=== PATIENT | female | born 1970 | race Caucasian/White ===

== ENCOUNTER 2017-08-07 17:26 | Inpatient (IN) | payer MEDICAID ==
[~2017-08-07] VITALS: Ht 154.9 cm; Wt 90.0 kg
[~2017-08-07 17:26] MED LIST: ASPI-664 PO; FERR-31 PO; LABE200T25 PO; PREN1TAB17 PO
[2017-08-07] MEDS ORDERED: HYDROCODONE/APAP (5/325) TAB PO ONE (18:30)
[2017-08-07 19:02] LABS: ADD UMIC YES; UR ASCORBIC ACID 40 mg/dL (NEGATIVE); UR BACTERIA FEW /HPF (NONE SEEN); UR BILIRUBIN (Dip) NEGATIVE (NEGATIVE); UR BLOOD (Dip) 3+ mg/dL (NEGATIVE); UR CLARITY CLOUDY (CLEAR); UR COLOR RED (YELLOW); UR GLUCOSE (Dip) NEGATIVE (NEGATIVE); UR KETONES (Dip) NEGATIVE (NEGATIVE); UR LEUKOCYTE ESTERASE (Dip) 1+ Leu/ul (NEGATIVE); UR NITRITE (Dip) NEGATIVE (NEGATIVE); UR RBC > 182 /HPF (0-5); UR SPECIFIC GRAVITY (Dip) 1.028 (1.003-1.030); UR TOTAL PROTEIN (Dip) 2+ mg/dl (NEGATIVE); UR UROBILINOGEN (Dip) NEGATIVE (NEGATIVE)
--- NOTE | 2017-08-07 19:18 | RADRPT ---
PROCEDURE: Ultrasound pelvis. CLINICAL INDICATION: Menorrhagia. TECHNIQUE: Multiple sonographic images of the pelvis were obtained utilizing a transabdominal and transvaginal technique. COMPARISON: Pelvic ultrasound dated 10/08/2015. FINDINGS: Uterus: 10.87 cm x 6.89 cm x 7.37 cm. Diffusely heterogeneous with no focal mass lesion identified. Endometrium: 1.11 cm in thickness. Mildly heterogeneous, but otherwise unremarkable. Right ovary: Not identified. Left ovary: 3.57 cm x 2.85 cm x 2.98 cm. Simple 2 cm cyst. Otherwise, normal in echogenicity. Fabienne l blood flow. Adnexa: No masses. Free fluid: Trace fluid within the cul-de-sac. IMPRESSION: 1. Diffusely heterogeneous echogenicity of the uterus with no focal mass lesion identified. 2. Mildly heterogeneous endometrium, which is within normal limits of thickness. 3. Simple 2 cm left ovarian cyst. 4. Trace free fluid within the cul-de-sac, which may be physiologic. RPTAT: HLBP .Sonny Poon MD, Date Time Electronically viewed and signed by .Sonny Poon MD, on 08/07/2017 19:17 .P/
[2017-08-07 20:06] LABS: HEMATOCRIT 27.8 % (37.0-47.0); HEMOGLOBIN 9.2 g/dl (12.0-16.0); MEAN CORPUSCULAR HEMOGLOBIN 25.5 pg (29.0-33.0); MEAN CORPUSCULAR HGB CONC 33.1 g/dl (32.0-37.0); MEAN PLATELET VOLUME 9.5 fl (7.4-10.4); PLATELET COUNT 365 10^3/UL (140-415); RED BLOOD COUNT 3.61 10^6/ul (4.20-5.40); RED CELL DISTRIBUTION WIDTH 14.6 % (11.5-14.5)
[2017-08-07 20:09] LABS: POSITIVE DIFF @See below
[2017-08-07 20:26] LABS: ALBUMIN 3.8 g/dl (3.3-4.9); ALBUMIN/GLOBULIN RATIO 1.46; CALCIUM 8.6 mg/dl (8.4-10.2); CREATININE 0.67 mg/dl (0.44-1.00); POTASSIUM 3.3 mmol/L (3.5-5.1); TOTAL PROTEIN 6.4 g/dl (6.1-8.1)
[2017-08-07 21:00] LABS: ANISOCYTOSIS 3+ (0-0); EOSINOPHILS % (M) 5 % (0-7); GIANT THROMBO% (M) 1 % (0-0); MICROCYTOSIS 3+ (0-0); MONOCYTES % (M) 6 % (0-11); PLATELET ESTIMATE NORMAL; POLYCHROMASIA 1+ (0-0)
--- NOTE | 2017-08-07 21:10 | ERD ---
ER Documentation Chief Complaint Chief Complaint heavy vag bleed x3 days. C/O dizziness and headache (TUCKER ROLON PA-C) HPI This is a 47-year-old female who presents emergency department today complaining of heavy vaginal bleeding for the past 3 days. States that she is currently on her menstrual cycle. She is concerned because she has large clots. States that last month she had her menstrual cycle for 2 weeks. States that she had a Pap smear a couple of years ago that was normal but has not had any evaluation since that time. States that she feels some weakness. Denies any fevers or chills, dysuria. States she has not taken any medication for the pain. States she has a slight headache. (TUCKER ROLON PA-C) ROS All systems reviewed and are negative except as per history of present illness. (TUCKER ROLON PA-C) Medications Home Meds Reported Medications Sulfamethoxazole/Trimethoprim* (Bactrim Ds* Tablet) 1 Each Tablet, 1 TAB PO BID , TAB 08/09/17 Ferrous Sulfate* (Ferrous Sulfate*) 325 Mg Tabec, 325 MG PO BID, TAB 08/09/17 Discontinued Reported Medications Aspirin* (Aspirin* EC) 81 Mg Tablet.dr, 81 MG PO DAILY, TAB 09/11/15 Ferrous Sulfate (Iron Supplement) 1 Tab Tablet, 1 TAB PO DAILY, TAB 09/11/15 Labetalol Hcl* (Labetalol Hcl*) 200 Mg Tablet, 200 MG PO BID, TAB 09/09/15 Vit-Iron Fumarate-FA ( Tablet) 1 Each Tablet, 1 TAB PO DAILY, TAB 09/01/15 Discontinued Scripts Acetaminophen* (Tylophen*) 500 Mg Capsule, 1 CAP PO Q6H Y for PAIN AND OR ELEVATED TEMP, #30 CAP Prov:TUCKER ROLON PA-C 08/07/17 Cephalexin* (Keflex*) 500 Mg Capsule, 500 MG PO QID for 7 Days, CAP Prov:TUCKER ROLON PA-C 08/07/17 Polyethylene Glycol* (Miralax*) 17 Gm Powd.pack, 17 GM PO DAILY, #30 PACKET Prov:TUCKER ROLON PA-C 08/07/17 Ferrous Sulfate* (Ferrous Sulfate*) 325 Mg Tabec, 325 MG PO BID, #30 TAB Prov:TUCKER ROLON PA-C 08/07/17 Hydrocodone/Acetaminophen ([place] 5-325 Tablet) 1 Each Tablet, 1 TAB PO Q6H Y for PAIN, #10 TAB Prov:TUCKER ROLON PA-C 08/07/17 Allergies Allergies: Coded Allergies: ibuprofen (Verified Allergy, Intermediate, rash, 10/09/15) naproxen (Verified Allergy, Mild, RASH, 10/09/15) PMhx/Soc Medical and Surgical Hx: pt denies Surgical Hx History of Surgery: No Hx Neurological Disorder: No Hx Respiratory Disorders: No Hx Cardiac Disorders: Yes (HTN) Hx Miscellaneous Medical Probl: No Hx Alcohol Use: No Hx Substance Use: No Hx Tobacco Use: No (TUCKER ROLON PA-C) Physical Exam Vitals Vital Signs Date Time Temp Pulse Resp B/P Pulse Ox O2 Delivery O2 Flow Rate FiO2 08/07/17 17:27 98.5 120 20 136/87 98 (EKMEKJIANSTEPHANIE MD) Physical Exam Const: NAD Head: Atraumatic Eyes: Normal Conjunctiva ENT: Normal External Ears, Nose and Mouth. Neck: Full range of motion..~ No meningismus. Resp: Clear to auscultation bilaterally Cardio: Regular rate and rhythm, no murmurs Abd: Soft, pelvic tenderness non distended. Normal bowel sounds. No tenderness at McBurney's Skin: No petechiae or rashes Back: No midline or flank tenderness Ext: No cyanosis, or edema Neur: Awake and alert Psych: Normal Mood and Affect (TUCKER ROLON PA-C) Result Diagram: 08/08/17 1435 08/07/171951 Results 24 hrs Laboratory Tests Test 08/07/17 18:38 08/07/17 19:52 Urine Color RED Urine Clarity CLOUDY Urine pH 5.0 Urine Specific [place] 1.028 Urine Ketones NEGATIVEmg/dL Urine Nitrite NEGATIVEmg/dL Urine Bilirubin NEGATIVEmg/dL Urine Urobilinogen NEGATIVEmg/dL Urine Leukocyte Esterase 1+Maddie/ul Urine Microscopic RBC > 182/HPF Urine Microscopic WBC 117/HPF Urine Bacteria FEW/HPF Urine Hemoglobin 3+mg/dL Urine Glucose NEGATIVEmg/dL Urine Total Protein 2+mg/dl White Blood Count 11.010^3/ul Red Blood Count 3.6110^6/ul Hemoglobin 9.2g/dl Hematocrit 27.8% Mean Corpuscular Volume 77.0fl Mean Corpuscular Hemoglobin 25.5pg Mean Corpuscular Hemoglobin Concent 33.1g/dl Red Cell Distribution Width 14.6% Platelet Count 50494^3/UL Mean Platelet Volume 9.5fl Neutrophils % % Segmented Neutrophils % (Manual) 57% Band Neutrophils % (Manual) 1% Lymphocytes % % Lymphocytes % (Manual) 31% Monocytes % % Monocytes % (Manual) 6% Eosinophils % % Eosinophils % (Manual) 5% Basophils % % Nucleated Red Blood Cells % 0.0/100WBC Neutrophils # 10^3/ul Neutrophils # (Manual) 6.310^3/ul Band Neutrophils # 0.110^3/ul Absolute Lymphocytes (Manual) 3.410^3/ul Lymphocytes # 10^3/ul Monocytes # 10^3/ul Absolute Monocytes (Manual) 0.610^3/ul Eosinophils # 10^3/ul Basophils # 10^3/ul Nucleated Red Blood Cells # 10^3/ul Platelet Estimate NORMAL Giant Platelets 1% Polychromasia 1+ Anisocytosis 3+ Microcytosis 3+ Sodium Level 140mmol/L Potassium Level 3.3mmol/L Chloride Level 105mmol/L Carbon Dioxide Level 24mmol/L Anion Gap 14 Blood Urea Nitrogen 23mg/dl Creatinine 0.67mg/dl Glucose Level 119mg/dl Calcium Level 8.6mg/dl Total Bilirubin 0.0mg/dl Direct Bilirubin 0.00mg/dl Indirect Bilirubin 0.0mg/dl Aspartate Amino Transf (AST/SGOT) 26IU/L Alanine Aminotransferase (ALT/SGPT) 43IU/L Alkaline Phosphatase 88IU/L Total Protein 6.4g/dl Albumin 3.8g/dl Globulin 2.60g/dl Albumin/Globulin Ratio 1.46 Current Medications Medications (Trade) Dose Ordered Sig/La Route PRN Reason Start Time Stop Time Status Last Admin Dose Admin Acetaminophen/ Hydrocodone Bitart 1 tab 1 tab ONCE ONCE PO 08/07/17 18:30 08/07/17 18:31 DC 08/07/17 19:48 Piperacillin Sod/ Tazobactam Sod (Zosyn 3.375gm/ 50 ml (Pmx)) 50 ml @ 100 mls/hr ONCE ONCE IV 08/07/17 22:00 08/07/17 22:29 DC 08/07/17 22:11 (STEPHANIE GUTIERREZ MD) Results 24 hrs DIAGNOSTIC IMAGING REPORT Patient: ELISSA SCANLON : 1970 Age: 47 Sex: F MR #: [id number] DOS: 08/07/17 0000 Ordering MD: TUCKER ROLON PA-C Location: [facility] Room/Bed: PROCEDURE: Ultrasound pelvis. CLINICAL INDICATION: Menorrhagia. TECHNIQUE: Multiple sonographic images of the pelvis were obtained utilizing a transabdominal and transvaginal technique. COMPARISON: Pelvic ultrasound dated 10/08/2015. FINDINGS: Uterus: 10.87 cm x 6.89 cm x 7.37 cm. Diffusely heterogeneous with no focal mass lesion identified. Endometrium: 1.11 cm in thickness. Mildly heterogeneous, but otherwise unremarkable. Right ovary: Not identified. Left ovary: 3.57 cm x 2.85 cm x 2.98 cm. Simple 2 cm cyst. Otherwise, normal in echogenicity. Normal blood flow. Adnexa: No masses. Free fluid: Trace fluid within the cul-de-sac. IMPRESSION: 1. Diffusely heterogeneous echogenicity of the uterus with no focal mass lesion identified. 2. Mildly heterogeneous endometrium, which is within normal limits of thickness. 3. Simple 2 cm left ovarian cyst. 4. Trace free fluid within the cul-de-sac, which may be physiologic. RPTAT: HLBP .Sonny Poon MD, MD Date Time Electronically viewed and signed by .Sonny Poon MD, MD on 08/07/2017 19:17 .P/ CC: TUCKER ROLON PA-C (TUCKER ROLON PA-C) Procedures/MDM This is a 47-year-old female who presents to the emergency department today complaining of heavy vaginal bleeding for the past 3 days. Patient had some lower pelvic pain and therefore did obtain laboratory workup as well as imaging. Patient has allergies to ibuprofen and Naprosyn was therefore given Hopwood here in the emergency department. Ultrasound shows a diffusely heterogeneous echogenicity of the uterus with no focal mass identified. There are no masses in the adnexa. There is a simple 2 cm left ovarian cyst. There is trace free fluid within the cul-de-sac which may be physiologic. Normal blood flow in the left ovary. The right ovary is not identified. test is negative UA shows 1+ leukocyte esterase and 117 microscopic white blood cells. There are greater than 182 red blood cells. laboratory workup shows a very mildly elevated white blood cell count. Her hemoglobin is decreased at 9.2. Platelets are within normal limits. Potassium is very mildly decreased otherwise electrolytes are within normal limits. Glucose is within normal limits. Liver enzymes are within normal limits. Symptoms at this time is consistent with pelvic pain and heavy vaginal bleeding and urinary tract infection. Low suspicion for ectopic , to ovarian abscess, ovarian torsion. When I went to discuss the results with the patient she was complaining of bleeding a lot and that she had blood through her pants. I did a pelvic exam on the patient and removed the large clots from the patient. She did have some brisk bleeding for short period of time. At that time I did place an IV line and do a type and screen. I placed a call to the laborist alarm security or surveillance monitor Dr. Menezes, who came to evaluate the patient. Patient was a poor historian and did provide new information in that she had wanted to have a tubal ligation in the past but was unable to get the paperwork completed. She indicated that she also had had Depo-Provera shot at some point and ended up having an implant placed into her arm. This was not mentioned in the patient 's initial history. Initially Dr. Menezes had planned to discharge the patient however receiving this new information and doing a vaginal exam patient had more clots. She felt that the patient at this point would do best by being admitted to [facility] for a D&C tomorrow morning. Patient was in understanding and agreement. Patient had been given IV fluids and Zosyn in anticipation for possible surgery prior to being seen by Dr. Menezes. I notified by attending physician Dr. Gutierrez for plans to admit the patient . Any further orders placed will be completed by Dr. Menezes or the admitting physician. Dr. Lopez will repeat the patient's CBC tomorrow morning. Patient remained stable throughout her course here in the emergency department. I had originally planned to give the patient a prescription for iron, short course of [place], Tylenol and MiraLAX however given that patient was going to be admitted Dr. Menezes indicated that that could be done by the laborist upon discharge (TUCKER ROLON PA-C) Attending Attestation: Discussed the patient's case with the physician's assistant store manager operations/nurse practitioner and agree with the findings and plan as documented in their note. (STEPHANIE GUTIERREZ MD) Departure Diagnosis: Primary Impression: Pelvic pain Additional Impression: Excessive vaginal bleeding Condition: Fair TUCKER ROLON PA-C Aug 07, 2017 21:10 STEPHANIE GUTIERREZ MD Aug 11, 2017 09:55
[2017-08-07] MEDS ORDERED: FER325 PO (21:12)
[2017-08-07] MEDS ORDERED: HYDR-906 PO (21:12)
[2017-08-07] MEDS ORDERED: POLY17PO6 PO (21:12)
[2017-08-07] MEDS ORDERED: CEPH-443 PO (21:13)
[2017-08-07] MEDS ORDERED: ACET500C5 PO (21:13)
[2017-08-07] MEDS ORDERED: PIPER-TAZO 3.375 GM IV (PMX) 50 ML IV ONE (22:00)
[2017-08-08] VITALS (17 sets, daily range): BP systolic 109–146; BP diastolic 65–86; PULSE 102–116; RESP 10–21; TEMP 97.1; Ht 154.9 cm; Wt 90.0 kg
--- NOTE | 2017-08-08 01:09 | HP ---
Date/Time of Note Date/Time of Note DATE: 08/08/17 TIME: 00:48 Assessment/Plan VTE Prophylaxis VTE Prophylaxis Intervention: ambulation Lines/Catheters IV Catheter Type (from [facility]): Peripheral IV Central line still needed: No Urinary Cath still in place: No Assessment/Plan Chief Complaint/Hosp Course Menorrhagia. Current use of contraceptive implant x 1 year. Problems: Assessment/Plan Was going to d/c the pt home but then checked her again and although no blood extruded from the vagina with abdominal pressure, on speculum exam there was a large amount, yet again, so decided to admit her for a D and C in the AM. Otherwise recommend that she return [facility] and arrange to have a BTL and then she won't need control and hopefully will get rid of the heavy bleeding. Pt will need to be d/c'ed home with an iron Rx. HPI/ROS Admit Date/Time Admit Date/Time AUG 08, 2017 Hx of Present Illness 47 y.o. with a contraceptive implant in place x 1 year with irregular heavy bleeding. Pt states she tried DepoProvera x 4 months but then switched to the implant. The first 2 months she had no period and then they became irregular and prolonged. Last month her period lasted 15 days but was not as heavy as this cycle. This time she has been bleeding x 3 days and it has been very heavy with medium to large clots. Pt states she wants a tubal ligation. Her periods when she was not on the hormonal contraception was generally x 3 days only She had a CARLOS and was feeling lightheaded on admit but feels better. PMHx: Hypertension- on Benazepril and a diuretic. Pt does not know the dosing. POBHx: x 4. x 1. PSHx: x 1. All: ibuprofen, naproxen. ROS Constitutional: fatigue, other (dizziness) Respiratory: no complaints Cardiovascular: no complaints Gastrointestinal: no complaints Genitourinary: no complaints Musculoskeletal: no complaints Neurologic: no complaints PMH/Family/Social Past Medical History Medical History: hypertension (Pt reports that she takes Benazepril and a diuretic.) Past Surgical History x 1 for her last for PIH. Family History Significant Family History: no pertinent family hx Social History Alcohol Use: none Smoking Status: Never smoker Drug Use: none Exam/Review of Systems Vital Signs Vitals Vital Signs Date Time Temp Pulse Resp B/P Pulse Ox O2 Delivery O2 Flow Rate FiO2 08/08/17 00:05 98.9 100 20 117/65 98 Room Air Intake and Output 08/07/17 08/07/17 08/08/17 15:00 23:00 07:00 Intake Total 50 ml Balance 50 ml Exam Constitutional: alert, oriented, well developed Psych: nl mood/affect Respiratory: clear to auscultation, normal air movement Cardiovascular: regular rate and rhythm Gastrointestinal: nl liver, spleen, non-tender, soft Genitourinary - Female: nl external genitalia, other (Vault fill with watery blood at each exam and medium sized blood clots are removed. Unable to see the cervix in a hospital bed.) Musculoskeletal: nl extremities to inspection Neurological: STITCHER FEEDER II-XII intact Labs Result Diagram: 08/07/17195108/07/171951 Medications Medications Current Medications Lactated Ringer's (Lr) 1,000 ml @ 125 mls/hr Q8H IV ; Start 08/08/17 at 00:00 ; Status UNV DA MUÑOZ MD Aug 08, 2017 01:08
[2017-08-08] MEDS: LACTATED RINGER'S 1,000 ML IV SCH ×3 (01:17→10:40)
[2017-08-08 08:22] LABS: ABNORMAL IP MESSAGE 1; MEAN CORPUSCULAR HEMOGLOBIN 25.3 pg (29.0-33.0); MEAN CORPUSCULAR HGB CONC 33.2 g/dl (32.0-37.0); MEAN CORPUSCULAR VOLUME 76.3 fl (82.0-101.0); MEAN PLATELET VOLUME 9.9 fl (7.4-10.4); PLATELET COUNT 310 10^3/UL (140-415); RED BLOOD COUNT 2.49 10^6/ul (4.20-5.40); RED CELL DISTRIBUTION WIDTH 14.8 % (11.5-14.5); WHITE BLOOD COUNT 13.5 10^3/ul (4.8-10.8)
[2017-08-08 08:25] LABS: POSITIVE DIFF @See below
[2017-08-08 08:26] LABS: HEMOGLOBIN 6.3 g/dl (12.0-16.0)
[2017-08-08 10:24] LABS: ANISOCYTOSIS 2+ (0-0); HYPOCHROMASIA 1+ (0-0); MICROCYTOSIS 2+ (0-0); MONOCYTES % (M) 3 % (0-11); MYELOCYTES % (M) 1 % (0-0); PLATELET ESTIMATE NORMAL
[2017-08-08] MEDS ORDERED: PHENYLephrine (100 MCG/ML) 5ML SYG ONE (12:12)
[2017-08-08] MEDS ORDERED: LIDOCAINE 2% (SDV) 5 ML INJ ONE (13:12)
[2017-08-08] MEDS ORDERED: CEFAZOLIN 1 GM INJ ONE (13:12)
[2017-08-08] MEDS ORDERED: ROCURONIUM 50 MG INJ ONE (13:12)
[2017-08-08] MEDS ORDERED: SUCCINYLCHOLINE CHLORIDE 100 MG/5 ML SYG IV ONE (13:12)
[2017-08-08] MEDS ORDERED: PROPOFOL 20 ML ONE (13:12)
[2017-08-08] MEDS ORDERED: ETOMIDATE 20 MG INJ ONE (13:12)
[2017-08-08] MEDS ORDERED: SUGAMMADEX SODIUM 200 MG/2 ML VIAL IV ONE (13:12)
[2017-08-08] MEDS ORDERED: HYDROmorphONE (0.2 MG/ML) 10ML SYG IV PRN ×3 (13:30)
[2017-08-08] MEDS ORDERED: MEPERIDINE 25 MG INJ IV PRN (13:30)
[2017-08-08] MEDS ORDERED: DIPHENHYDRAMINE 50 MG INJ IV PRN (13:30)
[2017-08-08] MEDS ORDERED: METOCLOPRAMIDE 10 MG INJ IV PRN (13:30)
[2017-08-08] MEDS ORDERED: FENTAnyl 50 MCG/ML VIAL IV PRN (13:30)
[2017-08-08] MEDS ORDERED: ONDANSETRON 4 MG INJ IV PRN ×2 (13:30→16:00)
[2017-08-08] MEDS ORDERED: FENTAnyl 50 MCG/ML VIAL ONE (13:39)
--- NOTE | 2017-08-08 13:39 | OPPN ---
Date/Time of Note Date/Time of Note DATE: 08/08/17 TIME: 13:37 Operative Report Planned Procedure Procedure date Aug 08, 2017 Procedure(s) D&C&Hysteroscopy and Endometrial Ablasion Performed by see signature line Efficiency Clerk none Anesthesiologist: RADHA TUBBS Pre-procedure diagnosis Severe Menorragia and severe Anemia Anesthesia Type: general Post-Procedure Post-procedure diagnosis Endometrium looks WNL Perimenopausal bleeding Findings Live Baby [], Apgars [] and [], weight [], position [], [] presentation []cord. Estimated Blood Loss: 0 - 10 mls Specimen(s) ECC &EMC Grafts/Implant(s) none Complication(s) none LAXMI MICHAEL M.D. Aug 08, 2017 13:39
[2017-08-08] MEDS: FENTAnyl 50 MCG/ML VIAL IV PRN ×2 (14:02→14:10)
[2017-08-08 15:17] LABS: BASOPHILS % 0.5 % (0.0-2.0); EOSINOPHILS % 0.2 % (0.0-7.0); HEMATOCRIT 28.6 % (37.0-47.0); HEMOGLOBIN 9.6 g/dl (12.0-16.0); LYMPHOCYTES # 1.7 10^3/ul (0.8-2.9); LYMPHOCYTES % 19.8 % (15.0-51.0); MEAN CORPUSCULAR HEMOGLOBIN 28.1 pg (29.0-33.0); MEAN CORPUSCULAR HGB CONC 33.6 g/dl (32.0-37.0); MEAN CORPUSCULAR VOLUME 83.6 fl (82.0-101.0); MEAN PLATELET VOLUME 10.3 fl (7.4-10.4); MONOCYTE # 0.2 10^3/ul (0.3-0.9); MONOCYTES % 2.3 % (0.0-11.0); NEUTROPHIL # 6.1 10^3/ul (1.6-7.5); NEUTROPHILS % 73.1 % (39.0-77.0); PLATELET COUNT 121 10^3/UL (140-415); RED BLOOD COUNT 3.42 10^6/ul (4.20-5.40); RED CELL DISTRIBUTION WIDTH 15.9 % (11.5-14.5); WHITE BLOOD COUNT 8.3 10^3/ul (4.8-10.8)
[2017-08-08] MEDS ORDERED: OXYCODONE/ACETAMINOPHEN (5/325) TAB PO PRN (16:30)
[2017-08-08] MEDS ORDERED: IBUPROFEN 600 MG TAB PO PRN (16:30)
[2017-08-09 02:00] VITALS: BP 102/63; RESP 18
[2017-08-09 07:45] VITALS: BP 104/70; RESP 16
--- NOTE | 2017-08-09 08:13 | OPR ---
DATE OF OPERATION: 08/08/2017 PREOPERATIVE DIAGNOSIS: Severe menorrhagia, severe anemia; ER panel patient. POSTOPERATIVE DIAGNOSIS: Severe menorrhagia, severe anemia; ER panel patient. OPERATION PERFORMED: D and C and hysteroscopy, endometrial ablation (thermal ablation). ATTENDING SURGEON: Art Michael MD ANESTHESIOLOGIST: Wes Valenzuela MD ESTIMATED BLOOD LOSS: Less than 10 mL. DESCRIPTION OF PROCEDURE: The patient was taken to the operating room where general anesthesia was found to be adequate. The patient was placed in dorsal lithotomy position. After prep and drape, a weighted speculum was placed inside the vaginal vault. Anterior lip of the cervix was grasped by s lynn-tooth tenaculum. Cervix was dilated by Chandra dilators. Sharp curettage of endometrial cavity was done. Before doing sharp curettage of endometrial cavity, a sharp curettage of endocervical ca vity was done. Both specimens were sent to Pathology. Then, hysteroscope was reinserted and intrau terine cavity was assessed. There was no sign of any lesion or mass, and looked like a normal cavit y. Using thermal ablation, endometrial ablation was performed successfully and pictures were taken. The patient tolerated the procedure well and was transferred to recovery room in stable condition. There was no complication regarding this procedure. Dictated By: ART MICHAEL MD RG/NTS Conf#: [id number] DID#: [id number] CC: DA MUÑOZ MD;*EndCC*
[2017-08-09 14:27] VITALS: BP 115/68; RESP 16
[2017-08-09] MEDS ORDERED: FER325 PO (17:33)
[2017-08-09] MEDS ORDERED: SULF1TAB31 PO (17:34)
--- NOTE | 2017-08-09 18:01 | DS ---
Date/Time of Note Date/Time of Note DATE: 08/09/17 TIME: 17:53 Discharge Summary Admission/Discharge Info Admit Date/Time August 09, 2017 Hospital discharge This patient is a 47 years old 4 para 2 who came to the emergency room due to vaginal bleeding with hemoglobin of 6.8 hematocrit of 19. The following is a brief note from the admitting physician: (47 y.o. with a contraceptive implant in place x 1 year with irregular heavy bleeding. Pt states she tried Depo Provera x 4 months but then switched to the implant. The first 2 months she had no period and then they became irregular and prolonged. Last month her period lasted 15 days but was not as heavy as this cycle. This time she has been bleeding x 3 days and it has been very heavy with medium to large clots. Pt states she wants a tubal ligation. Her periods when she was not on the hormonal contraception was generally x 3 days only She had a CARLOS and was feeling lightheaded on admit but feels better. PMHx: Hypertension- on Benazepril and a diuretic. Pt does not know the dosing. POBHx: x 4. x 1.) Due to fairly severe secondary anemia she was hospitalized she was given 4 units of blood as well as 2 units of plasma. Her hemoglobin gradually increased, yesterday they were 9.6 with hematocrit of 28.6 Today she is doing fairly well not much of a vaginal bleeding abdomen is soft. Chest is clear she is comfortable. I discussed the condition with her including the need for continuation of iron pill and visit her parts remover soon to repeat another hemoglobin hematocrit. She also was given IM antibiotic for urinary tract infection. Today besides iron I give her antibiotic Bactrim DS No. 14 to be taken twice daily for her urinary tract infection to to follow-up with her parts remover. Discharge Date/Time Patient Condition: Stable Hospital Course As dictated above Home Meds Reported Medications Sulfamethoxazole/Trimethoprim* (Bactrim Ds* Tablet) 1 Each Tablet, 1 TAB PO BID , TAB 08/09/17 Ferrous Sulfate* (Ferrous Sulfate*) 325 Mg Tabec, 325 MG PO BID, TAB 08/09/17 Discontinued Reported Medications Aspirin* (Aspirin* EC) 81 Mg Tablet.dr, 81 MG PO DAILY, TAB 09/11/15 Ferrous Sulfate (Iron Supplement) 1 Tab Tablet, 1 TAB PO DAILY, TAB 09/11/15 Labetalol Hcl* (Labetalol Hcl*) 200 Mg Tablet, 200 MG PO BID, TAB 09/09/15 Vit-Iron Fumarate-FA ( Tablet) 1 Each Tablet, 1 TAB PO DAILY, TAB 09/01/15 Discontinued Scripts Acetaminophen* (Tylophen*) 500 Mg Capsule, 1 CAP PO Q6H Y for PAIN AND OR ELEVATED TEMP, #30 CAP Prov:TUCKER ROLON PA-C 08/07/17 Cephalexin* (Keflex*) 500 Mg Capsule, 500 MG PO QID for 7 Days, CAP Prov:TUCKER ROLON PA-C 08/07/17 Polyethylene Glycol* (Miralax*) 17 Gm Powd.pack, 17 GM PO DAILY, #30 PACKET Prov:TUCKER ROLON PA-C 08/07/17 Ferrous Sulfate* (Ferrous Sulfate*) 325 Mg Tabec, 325 MG PO BID, #30 TAB Prov:TUCKER ROLON PA-C 08/07/17 Hydrocodone/Acetaminophen ([place] 5-325 Tablet) 1 Each Tablet, 1 TAB PO Q6H Y for PAIN, #10 TAB Prov:TUCKER ROLON PA-C 08/07/17 Follow-up Plan As I mentioned in my dictation she will continue the antibiotic and visit her parts remover soon I also advised her to keep her contraceptive implant. She may undergo a tubal ligation soon. As I mentioned above Primary Care Provider Care Physician No Primary Time spent on discharge: > 30 minutes CRISTINA ANG MD Aug 09, 2017 18:01
--- NOTE | 2017-08-09 18:52 | RADRPT ---
Vent Rate: 125 bpm RR Interval: 0 msec VT Interval: 130 msec QRS Duration: 72 msec QT Interval: 344 msec QTC Interval: 496 msec P-R-T [place]: 52 - -6 - -41 degrees Sinus tachycardia Nonspecific ST and T wave abnormality Abnormal ECG Electronically Signed By: Danie Samaniego [id number]
== END 2017-08-09 18:10 | disposition home or self-care (01) | DRG 745 ==
LOC: FTE 17:26 → MS2 23:49 → OBSVTOIN 08-08 19:23
PROVIDERS: ADMIT Obstetrics & Gynecology; ATTEND Obstetrics & Gynecology
PROC: 30233N1 Transfusion of Nonautologous Red Blood Cells into Peripheral Vein, Percutaneous Approach (ICD-10-PCS; 2017-08-07)
PROC: 0UDB8ZZ Extraction of Endometrium, Via Natural or Artificial Opening Endoscopic (ICD-10-PCS; 2017-08-08)
PROC: 30233K1 Transfusion of Nonautologous Frozen Plasma into Peripheral Vein, Percutaneous Approach (ICD-10-PCS; principal; 2017-08-08 11:30)
DX: N92.0 Excessive and frequent menstruation with regular cycle (principal); D64.9 Anemia, unspecified; R10.2 Pelvic and perineal pain; N83.202 Unspecified ovarian cyst, left side
CPT/HCPCS: 36430; 76830; 76856; 80053; 81001; 84702; 85025; 86850; 86900; 86901; 86920; 88305; 93005; 99217; G0378; J0690; J1170; J2175; J2370; J2405; J2543; J3010; J7120; P9016; P9059